=== PATIENT | female | born 1985 | race Caucasian/White ===

== ENCOUNTER 2020-11-21 13:52 | Outpatient (REF) | payer OTHER, SELFPAY ==
[2020-11-23 14:34] LABS: BV Int Neg Control Negative (Negative); BV Int Pos Control Positive (Positive)
== END 2020-11-21 13:53 | disposition home or self-care (01) ==
LOC: HO.LNP 13:52
PROVIDERS: Visit Provider Physician Assistant Medical
DX: N89.8 Other specified noninflammatory disorders of vagina (principal); R10.2 Pelvic and perineal pain
CPT/HCPCS: 87480; 87510; 87660

== ENCOUNTER 2022-02-23 12:08 | Outpatient (REF) | payer OTHER, SELFPAY ==
[2022-02-24 10:00] LABS: BV Int Neg Control Negative (Negative); BV Int Pos Control Positive (Positive)
== END 2022-02-23 12:09 | disposition home or self-care (01) ==
LOC: HO.LNP 12:08
PROVIDERS: Visit Provider Internal Medicine
DX: N89.8 Other specified noninflammatory disorders of vagina (principal)
CPT/HCPCS: 87480; 87510; 87660

== ENCOUNTER 2022-04-06 11:55 | Outpatient (REF) | payer OTHER, SELFPAY ==
[2022-04-06 14:22] LABS: MANUAL DIFF FLAG NO
[2022-04-06 14:24] LABS: Basophils Percent Auto 0.7 % (0-2); Hematocrit 33.2 % (37.0-47.0); Hemoglobin 10.9 g/dl (12.0-16.0); Imm Gran Abs Auto 0.01 X10*3/uL (0.00-0.03); Imm Gran Pct Auto 0.2 % (0.0-0.4); Lymphocytes Absolute Auto 1.7 X10*3/uL (1.2-4.9); Lymphocytes Percent Auto 42.6 % (20-40); Mean Corpuscular HGB Conc 32.8 g/dl (31.0-35.0); Mean Corpuscular Hemoglobin 26.8 pg (27.0-33.0); Mean Corpuscular Volume 81.8 fL (80.0-98.0); Mean Platelet Volume 10.6 fL (9.4-12.3); Monocytes Absolute Auto 0.4 X10*3/uL (0.1-1.2); Monocytes Percent Auto 9.5 % (2-11); Neutrophils Absolute Auto 1.8 x10*3/uL (2.0-8.3); Platelet Count 290 X10*3/uL (160-400); Red Blood Count 4.06 X10*6/uL (4.20-5.50); Red Cell Distribution Width 15.8 % (11.0-16.0)
[2022-04-06 14:47] LABS: Alanine Aminotransferase 9 U/L (0-31); Alkaline Phosphatase 46 U/L (39-117); Anion Gap 9 (12-20); Aspartate Amino Transferase 15 U/L (5-31); Bilirubin Total 0.6 mg/dL (0.0-1.0); Blood Urea Nitrogen 14 mg/dL (9-16); Calcium 8.9 mg/dL (8.4-10.2); Carbon Dioxide 26 mmol/L (22-29); Chloride 107 mmol/L (96-108); Cholesterol 153 mg/dL; Estimated Glomerular Filt Rate > 60; Glucose Fasting 80 mg/dL (60-99); HDL Cholesterol 58 mg/dL; LDL Cholesterol Calculated 89 mg/dl; Potassium 4.1 mmol/L (3.3-5.1); Sodium 138 mmol/L (135-145); Triglycerides 30 mg/dL
[2022-04-06 15:03] LABS: TSH reflex Free T4 1.29 uIU/mL (0.32-4.0)
== END 2022-04-06 11:56 | disposition home or self-care (01) ==
LOC: HO.HMGCLDS 11:55
PROVIDERS: PCP Internal Medicine; Visit Provider Internal Medicine
DX: Z00.01 Encounter for general adult medical examination with abnormal findings (principal); E66.3 Overweight
CPT/HCPCS: 36415; 80053; 80061; 84443; 85025

== ENCOUNTER 2022-04-19 11:08 | Outpatient (REF) | payer OTHER, SELFPAY ==
[2022-04-19 13:56] LABS: CT PCR NOT DETECTED (Not Detect.); NG PCR NOT DETECTED (Not Detect.)
[2022-04-20 09:07] LABS: BV Int Neg Control Negative (Negative); BV Int Pos Control Positive (Positive)
[2022-04-21 01:10] LABS: HPV mRNA E6/E7 rflx Not Detected (Not Detected)
== END 2022-04-19 11:09 | disposition home or self-care (01) ==
LOC: HO.LNP 11:08
PROVIDERS: PCP Family Medicine; Visit Provider Advanced Practice Midwife
DX: Z01.419 Encounter for gynecological examination (general) (routine) without abnormal findings (principal); Z11.51 Encounter for screening for human papillomavirus (HPV)
CPT/HCPCS: 0353U; 87480; 87510; 87624; 87660; 88142

== ENCOUNTER 2022-08-04 08:20 | Emergency (ER) | payer OTHER, SELFPAY ==
--- NOTE | ~2022-08-04 | XR_ITS ---
EXAMINATION: SACRUM/COCCYX AND LUMBAR SPINE CLINICAL INFORMATION: Back pain COMPARISON: December 08, 2018 TECHNIQUE: Three-view lumbar spine and three-view sacrum and coccyx FINDINGS: There are 5 nonrib-bearing lumbar vertebra. There is stable mild scoliosis convex left. No acute fracture, spondylolisthesis, or spondylolysis identified. There is mild narrowing of the L5-S1 disc space. Sacroiliac joints appear unremarkable. Pedicles appear intact. No narrowing or widening of the sacroiliac joints is identified. There is no evidence of acute fracture of the sacrum or coccyx. No destructive bony lesion identified. XR/XR lumbar spine 2-3V IMPRESSION: No significant bony abnormality of the lumbar spine, sacrum, or coccyx identified. Mild disc space narrowing L5-S1.
--- NOTE | ~2022-08-04 | XR_ITS ---
EXAMINATION: SACRUM/COCCYX AND LUMBAR SPINE CLINICAL INFORMATION: Back pain COMPARISON: December 08, 2018 TECHNIQUE: Three-view lumbar spine and three-view sacrum and coccyx FINDINGS: There are 5 nonrib-bearing lumbar vertebra. There is stable mild scoliosis convex left. No acute fracture, spondylolisthesis, or spondylolysis identified. There is mild narrowing of the L5-S1 disc space. Sacroiliac joints appear unremarkable. Pedicles appear intact. No narrowing or widening of the sacroiliac joints is identified. There is no evidence of acute fracture of the sacrum or coccyx. No destructive bony lesion identified. XR/XR sacrum coccyx min 2V IMPRESSION: No significant bony abnormality of the lumbar spine, sacrum, or coccyx identified. Mild disc space narrowing L5-S1.
[2022-08-04 08:28] VITALS: BP 106/79; PULSE 75; RESP 18; TEMP 36.8; O2SAT 97; BMI 28.2
[2022-08-04] MEDS: Ketorolac Tromethamine 30 MG/ML VIAL IM (09:46)
--- NOTE | 2022-08-04 09:49 | PC.NURSE ---
medication administered per provider order.
--- NOTE | 2022-08-04 10:21 | ED_ITS ---
HPI - Back Pain/Injury General Chief Complaint: Back Pain/Injury Stated Complaint: Back Pain S/P Injury 1 Wk Ago Time Seen by Provider: 08/04/22 08:54 Source: patient and RN notes reviewed Mode of arrival: ambulatory Limitations: no limitations History of Present Illness HPI Narrative: This is a 36-year-old female, with no known past medical history, presenting to the emergency department for evaluation of back pain times 10 days. Patient reports that she has a handicap son weighing approximately 60 lb and she had to pick him up and move him. She did not initially have back pain immediately following this incident however later on in the day she progressively developed worsening right-sided low back pain. Patient reports that this pain has been constant and has not been improving despite taking ibuprofen and Tylenol. She reports this pain is right-sided and radiates down her right buttocks, denies writing eating down into her legs or toes. She denies saddle anesthesia, urinary or bowel incontinence. She states that several years ago she slipped and fell onto her tailbone however was told that this was not fractured but states that she had back pain following this for quite some time. No other complaints or concerns at this time. MD elicited complaint: back pain and back injury Pertinent past history: prior back pain Onset (ago): day(s) Timing: constant Similar Symptoms Previously: Yes Quality: aching Location: lumbar spine Radiation: right upper leg Exacerbating factors: movement Context: while lifting and turning/twisting Associated symptoms: denies other symptoms Work related injury: No Related Data Previous Rx's Medication Instructions Recorded cyclobenzaprine 5 mg tablet 5 mg PO TID PRN muscle spasm #14 08/04/22 tabs ibuprofen 600 mg tablet 600 mg PO Q6H PRN pain #45 tabs 08/04/22 Allergies Allergy/AdvReac Type Severity Reaction Status Date / Time nitrofurantoin [Macrobid] Allergy Unknown hives/itchn Verified 04/19/22 11:13 ess Review of Systems Review of Systems: Constitutional: No Weight loss, No Fever, No Chills ENT/Mouth: No Ear Pain, No Nasal Congestion, No Sinus Pain, No Hoarseness, No sore throat, No Rhinorrhea, No Swallowing Difficulty Cardiovascular: No Chest Pain, No SOB Respiratory: No Cough, No Sputum, No Wheezing Gastrointestinal: No Nausea, No Vomiting, No Diarrhea, No Constipation, No Abdominal pain Genitourinary: No Dysuria, No Urinary Frequency, No Hematuria, No Urinary Incontinence/retention, No Urgency, No Flank Pain Musculoskeletal: +back pain, No joint pain, No Myalgias, No Joint Swelling Skin: No Skin Lesions, No rash Neuro: No Weakness, No Numbness, No Paresthesias PMF Past Medical History Surgical History Hx of tubal ligation Social History Social History Housing: House Alcohol intake: never Patient Tobacco Use Status: Never used Tobacco Smoked in Last 30 Days: No e-Cigarette/Vaping Use: Never Used Use of substances other than those prescribed or required for medical reasons: No Advance Directives: No Advance Directives Information Provided: Yes Patient : No service: No Current occupational status: employed Cognitive needs: No Hearing needs: No Vision needs: Yes Physical Exam Vital Signs: Vital Signs: Last Vital Signs Temp 98.3 F 08/04/22 08:28 Pulse 75 08/04/22 08:28 Resp 18 08/04/22 08:28 BP 106/79 08/04/22 08:28 Pulse Ox 97 08/04/22 08:28 O2 Del Method Room Air 08/04/22 08:28 BMI result Body Mass Index 28.2 Const: Other: General: Awake, alert, and oriented X3. No acute distress. HEENT: Normal inspection CVS: Normal heart rate and rhythm. Pulses normal. Respiratory: No respiratory distress Skin: Warm, dry, no rashes noted to exposed skin. Normal skin color. Normal skin turgor. Extremities: Normal to inspection Back: No cervical, thoracic, or lumbar midline spine tenderness. Tenderness to palpation over the sacrum and right SI joint. DTRs 2+. Distal sensation circulation intact. Negative straight leg raise Neuro: Oriented X 3. No motor deficit. No sensory deficit. Course Reevaluation(s) Reevaluation #1: Patient re-evaluated, pain improved with Toradol. X-ray returns showing no significant bony abnormality of the lumbar spine, sacrum, or coccyx. There is mild disc space narrowing at the L5-S1. I discussed these results with patient. Will treat patient with anti-inflammatories and muscle relaxants. Advised patient to follow-up with primary care physician within the next week. Given return precautions if any new or worsening symptoms occur. Patient understands and agrees with plan. Patient stable for discharge. Time: 10:46 Medications Administered Discontinued Medications Generic Name Dose Route Start Last Admin Trade Name Freq PRN Reason Stop Dose Admin Ketorolac Tromethamine 30 mg 08/04/22 09:25 08/04/22 09:46 Ketorolac Tromethamine 30 Mg/Ml Vial IM 08/04/22 09:26 30 mg ONCE ONE Administration Medical Decision Making Medical Decision Making [facility] Narrative: 36 y/o female presenting to the emergency department with ongoing back pain times 10 days. On examination the patient has mild to right paraspinous muscle tenderness, sacral tenderness and right SI joint pain. Patient has no red flag back pain symptoms. Vital signs stable upon arrival. Plan: Lumbar spine, sacrum/coccyx x-rays ordered. Patient medicated with Toradol 30 mg IM Differential Diagnosis Differential Diagnoses: The differential diagnosis associated with the presentation includes Muscle strain, muscle spasm, disc herniation, fracture, cauda equina syndrome- less likely Discharge Plan Discharge Clinical Impression: Back pain Patient Disposition: Home, Self-Care Instructions: Acute Low Back Pain (ED) Additional Instructions: Your x-rays did not show any broken bones today however there was mild disc space narrowing at L5-S1. This may be a normal variant for you, please follow- up with your primary care physician for further management. Please take prescribed medication as directed. Please be aware that Flexeril can cause drowsiness, do not drink alcohol or drive while taking this medication. Please follow-up with your primary care physician regarding this visit. If any new or worsening symptoms occur please return for re-evaluation. Prescriptions: New cyclobenzaprine 5 mg tablet 5 mg PO TID PRN (Reason: muscle spasm) Qty: 14 0RF ibuprofen 600 mg tablet 600 mg PO Q6H PRN (Reason: pain) Qty: 45 0RF Interventions: ED Discharge Assessment Last Done: 08/04/22 11:05 Discharge Date/Time: 08/04/22 11:06
== END 2022-08-04 11:06 | disposition home or self-care (01) ==
PROVIDERS: Emergency Provider Emergency Medicine; PCP Internal Medicine
DX: M54.50 Low back pain, unspecified (principal)
CPT/HCPCS: 72100; 72220; 96372; 99283; 99284; J1885